=== PATIENT | male | born 1965 | race Caucasian/White ===

== ENCOUNTER 2024-10-04 17:42 | Inpatient (IN) | payer OTHER, SELFPAY ==
[2024-10-04] VITALS (27 sets, daily range): BP systolic 106–132; BP diastolic 74–107; BMI 32.5; BMI 32.2
--- NOTE | 2024-10-04 15:19 | ED.GENMED ---
History of Present Illness
General
Chief Complaint: Cardiac Symptoms
Source: patient
Exam Limitations: none
Time Seen by Provider: 10/04/24 15:09
History of Present Illness
History of Present Illness:
59yoM with a history of hypertension and DVT on Eliquis presenting for evaluation of elevated heart rate. Patient's noticed that his heart rate was elevated 3 days ago. He borrowed his coworker's watch which monitors his heart rate. His
heart rate has been elevated in the 140s for the past several days. He was seen by his PCP today and was sent to the ED for evaluation. Triage EKG shows atrial flutter. He has no prior history of this. He is currently asymptomatic and denies any
palpitations, chest pain, shortness of breath, dizziness, syncope.
Past History
Past History
ED Past Medical History: Other (DVT)
Social History
Tobacco: Non-smoker
Personal:
Phy Exam
General Physical Exam
General Presentation: well appearing
General Skin: warm and dry
General Habitus: normal
General Mental: alert
ENT Exam
ENT Exam: normocephalic
Cardiovascular Exam
Cardiovascular Exam: no edema, irregularly irregular and tachycardia
Pulmonary Exam
Pulmonary Exam: lungs clear, no respiratory distress, no rales, no crackles, no rhonchi and no wheezing
Neurological Exam
Neurological Exam: alert
Luisa Coma Scale
Eye Opening: Spontaneous
Verbal Response: Oriented
Motor Response: Obeys Commands
GCS Total Score: 15
Skin Exam
Skin Exam: normal color and warm/dry
Psychiatric Exam
Psychiatric Exam: normal mood/affect
Course
Orders/Labs/Results
Orders:
Orders
10/04/24 14:45
EKG [Electrocardiogram (*1)] Urgent
Reason for Study: Atrial Fibrillation
EKG- Treatment ONCE
10/04/24 15:18
Cardiac Monitoring- Treatment ONCE
0.9% Sodium Chloride 1000 ml [Nss] 1,000 ml IV BOLUS
Diltiazem HCl [Cardizem] 15 mg IV NOW STA
10/04/24 15:28
Complete Blood Count/With Diff Urgent
Comprehensive Metabolic Panel Urgent
Magnesium Urgent
TSH Reflex To Free T4 Urgent
Troponin I Urgent
10/04/24 15:30
Diltiazem 125 mg/125 ml Nss [Cardizem] 125 mg in 125 ml IV PER PROTOCOL
Initial dose in mg/hr, then titrate:: 5
Titrate to keep:: Heart rate 80-100 bpm
Titrate by mg/hr:: 5 mg/hr
Frequency of titrations (minutes):: 15
Maximum dose in mg/hr:: 15
10/04/24 17:12
Echo 2D MMode Color/Doppler Routine
Reason for Study: afib, new
10/04/24 17:30
Admit/Transfer Patient As Directed
Co-Sign Provider:
Level of Care: Inpatient admission
Assign to:: IVU
Physician / Group: [email or web address]
Diagnosis: New onset fast A Flutter
Reason for Hospitalization: New onset fast A Flutter
Expected length of stay greater than two midnights?: Yes
ELOS- Estimated Length of Stay in days: 3
I certify the patient meets the requirements for IP care: Yes
10/04/24 17:31
Code Status As Directed
Resuscitation Status: Full Code
10/04/24 20:00
Apixaban [Eliquis] 5 mg PO BID
10/05/24 06:00
Echo Candido W/echo Doppler (#17) IN AM
Reason for Study: prior to cardioversion
NPO
Allow oral meds: Yes
Allow clear liquids: No
Abnormal Lab Results
10/04/24
15:28
RBC 4.56 L 10^6/uL
(4.70-6.10)
MCH 31.8 H pg
(27.0-31.0)
MPV 10.9 H fL
(7.4-10.4)
Absolute Lymphs (auto) 1.1 L 10^3/uL
(1.2-3.4)
Lymphocytes % 19.6 L %
(20.5-51.1)
Chloride 111 H mmol/L
(98-107)
Glucose 100 H mg/dl
(70-99)
10/04/24 15:28
10/04/24 15:28
Vital Signs
Initial and Last Documented VS:
Initial Vital Signs
Temp Pulse Resp BP Pulse Ox
98.5 F 144 16 132/95 98
10/04/24 14:51 10/04/24 14:51 10/04/24 14:51 10/04/24 14:51 10/04/24 14:51
Last Documented Vital Signs
Temp Pulse Resp BP Pulse Ox
98.5 F 115 14 126/86 97
10/04/24 14:51 10/04/24 16:35 10/04/24 16:35 10/04/24 16:35 10/04/24 16:35
MDM/Problems Addressed
Differential Diagnosis Includes:
59yoM here with elevated HR x several days. He is asymptomatic and denies palpitations. HR in the 140s on arrival. EKG shows rapid aflutter which he has no hx of. BP stable. Differential diagnosis includes but is not limited to: arrhythmia,
electrolyte abnormality, thyroid dysfunction
Initial ED plan: Check cardiac labs, TSH, magnesium. IV Cardizem bolus and infusion ordered.
*Pulse Oximetry
SaO2: 98
Oxygen Mode of Delivery: Room air
Patient hypoxic: no (98%)
*EKG
Interpreted by ED Provider?: Yes
EKG Intrepretation Date: 10/04/24
Heart Rate: 142
Rate: tachycardiac
Rhythm: atrial flutter
[place]: normal axis
Interval: normal interval
QRS Pattern: normal QRS
Ischemia: non-specific ST changes
*Critical Care Note
Total Time (30-74mins, 75-104mins- exclusive of procedures): Not Applicable (30)
Update Note
Update Note:
Labs unremarkable including normal electrolytes and TSH. Heart rate controlled on Cardizem gtt. Patient evaluated by cardiology. Tentative plan for CANDIDO/cardioversion tomorrow. Patient admitted for further management.
ED Attending Note
-
Portions of this chart may have been created with voice recognition software.� Occasional wrong word or��sound alike� substitutions may have occurred due to the inherent limitations of voice recognition software.
Discharge Plan
Departure
Patient Disposition: Admit
Date of Disposition: 10/04/24
Time of Disposition: 17:04
Presentation/result/management discussed w/ accepting MD/DO: Hospitalist
Discharge Problem:
Atrial flutter with rapid ventricular response
Interventions
Interventions:
*Risk Screen - Suicide Last Done: 10/04/24 14:51
*General Assessment Last Done: 10/04/24 14:51
*Neglect/Abuse Screening Last Done: 10/04/24 14:51
*ED- Fall Risk Assessment Last Done: 10/04/24 14:51
*ED COVID-19 Vaccine History Last Done: 10/04/24 14:51
ED- Pulmonary Assessment Last Done: 10/04/24 15:26
ED- Cardiac Assessment Last Done: 10/04/24 15:26
[2024-10-04] MEDS: NSS 1000 IV (15:34)
[2024-10-04] MEDS: CARDIZEM 15 MG IV (15:34)
[2024-10-04 15:37] LABS: Hematocrit 42.5 % (39.0-52.0); Hemoglobin 14.5 g/dL (13.0-18.0); Mean Corp Hgb Conc. 34.1 g/dL (33.0-37.0); Mean Corpuscular Volume 93.2 fL (80.0-94.0); Nucleated Red Blood Cells % 0 % (-); Platelet Count 157 10^3/uL (130-400); Red Cell Dist. Width 12.4 % (11.5-14.5)
[2024-10-04] MEDS: CARDIZEM 125 IV (15:37)
[2024-10-04 16:02] LABS: Troponin I < 0.012 ng/ml
[2024-10-04 16:04] LABS: ALT (SGPT) 17 U/L (0-50); AST (SGOT) 17 U/L (17-59); Albumin 4.5 g/dl (3.5-5.0); Alkaline Phosphatase 49 U/L (38-126); Blood Urea Nitrogen 16 mg/dl (9-20); Calcium 10.0 mg/dl (8.4-10.2); Carbon Dioxide 24 mmol/L (22-30); Chloride 111 mmol/L (98-107); Estimated Creatinine Clearance > 125 ml/min; Glucose 100 mg/dl (70-99); Magnesium 2.0 mg/dl (1.6-2.3); Potassium 4.6 mmol/L (3.5-5.1); Sodium 138 mmol/L (135-145); Total Protein 6.9 g/dl (6.3-8.2); eGFR > 60.00
--- NOTE | 2024-10-04 16:21 | CON.CAR ---
Addendum entered and electronically signed by Raffi Washington MD 10/04/24 17:38:
I saw and examined the patient.
The MAGAZINE DESIGNER's note was reviewed and I agree with the note.
Comment: NPO after midnight, Eliquis 5 mg bid, dilt gtt, LEIA DCCV tomorrow
Original Note:
Consultation
Consultation Request
Date/Time Consultation Requested: 10/04/24 1600
Date/Time Consultation Performed: 10/04/24 1620
Requesting Provider: Cherise Padron
Performing Provider: Ann-Marie GO for Dr. Washington
Reason for Consultation: Atrial flutter
Medical History
-
Chief Complaint: elevated HR
History of Present Illness:
59 y/o male with hypertension and DVT on Eliquis who is here for elevated HR noted by his on Wednesday (when her ear was against his chest). On Wednesday, he wore a smart watch and HR was in 140's. This happened again on Wednesday. Today, he went to
PCP and was referred to ER for atrial flutter with HR's in 140's. He does not feel it. He is on a diltiazem drip at present.
Past Medical History
Past Medical History: HTN and Other (DVT)
Social History
Tobacco: Non-Smoker
Alcohol: Other (moderate drinking on weekends)
Personal:
Allergies / Home Medications
Allergy/AdvReac Type Severity Reaction Status Date / Time
No Known Allergies Allergy Verified 10/04/24 14:54
Med rec pending, but patient takes Eliquis once daily and lisinopril
Review of Systems
-
History Source: Patient
All other systems: Negative unless noted
Physical Exam
Vital Signs
Temp Pulse Resp BP Pulse Ox
98.5 F 102 22 115/80 95
10/04/24 14:51 07/16/25 16:10 10/04/24 16:10 10/04/24 16:10 10/04/24 16:10
Lab Results
10/04/24 15:28
10/04/24 15:28
Troponin I < 0.012 ng/ml 10/04/24 15:28
Physical Exam
General: Well Developed, Well Nourished and No Apparent Distress
HEENT: Normocephalic and Anicteric
Respiratory: Clear and Non Labored Respirations
Cardiac: Regular Rhythm
Musculoskeletal: No Edema
Skin: Warm and Dry
Neuro: AO x 3
Psych: Calm
Impression / Plan
-
Atrial flutter: new diagnosis
-continue IV diltiazem, which requires intensive monitoring
-continue Eliquis, but he needs to be on 5 mg PO BID- we reviewed this- [id number] score is 1 for HTN, but he is on Eliquis for DVT
-LEIA/CV in AM- we reviewed these procedures in detail
-TSH pending
-echo
-sleep study as OP
-reduce ETOH, exercise, weight loss all recommended
hx DVT:
-taking Eliquis only once daily, so we reviewed proper dosing of this
HTN:
-can transition from lisinopril to diltiazem
Data Reviewed
-
EKG: Tracing Personally Visualized and interpreted (Atrial flutter 142 BPM)
Medical Tests (Nuc Med, Echo etc): Other (echo is ordered)
Labs: Labs Reviewed by me
--- NOTE | 2024-10-04 17:26 | HPS.HSE ---
Family Physician
-
Family Physician: Bertha Chaves
Chief Complaint
-
fast HR
History of Present Illness
59M HX HTN, HX DVT on seen at ER:
- seen for fast HR noted by his on Wednesday when her ear was against his chest
- On Wednesday, he wore a smart watch and HR was in 140's. This happened again on Wednesday.
- Today, he went to PCP and was referred to ER for atrial flutter with HR's in 140's. It is asymtomatic
- He is on a diltiazem gtt at present.
Medical History
Past Medical History
Past Medical History: Reports HTN and Other (HX DVT on ); Denies Arrhythmia
Past Surgical History: Reports None
Social History
Tobacco: Non-smoker
Alcohol: Other (moderate drinking over the weekends )
Drug: None
Personal:
Living: With Family
Family History
Family History: Not pertinent
Allergies / Home Medications
Allergies reflects when Allergies were last updated in [facility].
Home Medications with original date entered in [facility]
Allergy/Medication List:
Allergies
Allergy/AdvReac Type Severity Reaction Status Date / Time
No Known Allergies Allergy Verified 10/04/24 14:54
Home Medications
lisinopril 10 mg tablet 10 mg PO DAILY 12/04/15
enoxaparin 120 mg/0.8 mL subcutaneous syringe 110 mg (0.7333 mL) SC Q12H ##60 12/07/15
Review of Systems
-
Constitutional: Reports No Symptoms
EENT: Reports No Symptoms
Respiratory: Reports No Symptoms
Cardiac: Reports See HPI; Denies Chest Pain or Palpitations
Abdomen/GI: Reports No Symptoms
: Reports No Symptoms
Musculoskeletal: Reports No Symptoms
Skin: Reports No Symptoms
Neurological: Reports No Symptoms
Endocrine: Reports No Symptoms
Hematologic/Lymphatic: Reports No Symptoms
Psych: Reports No Symptoms
Physical Exam
Vital Signs
Vital Signs
Temp Pulse Resp BP Pulse Ox
98.5 F 115 14 126/86 97
10/04/24 14:51 10/04/24 16:35 10/04/24 16:35 10/04/24 16:35 10/04/24 16:35
Physical Exam
General: Well Developed, Well Nourished and No Apparent Distress
HEENT: NormoCephalic, Moist mucous membranes and Atraumatic
Respiratory: Clear
Cardiac: Irregular Rhythm
GI: Soft, Non Tender, Non Distended and Normal Bowel Sounds; No Organomegaly
Rectal: Deferred by Provider
Musculoskeletal: No Clubbing, No Cyanosis and No Edema
Skin: No Rash
Neuro: Nonfocal/grossly intact
Laboratory Results
-
10/04/24 15:28
10/04/24 15:28
Laboratory Results
Total Bilirubin 1.3 mg/dl (0.2-1.3) 10/04/24 15:28
AST 17 U/L (17-59) 10/04/24 15:28
ALT 17 U/L (0-50) 10/04/24 15:28
Alkaline Phosphatase 49 U/L (38-126) 10/04/24 15:28
Troponin I < 0.012 ng/ml 10/04/24 15:28
Data Reviewed
-
Lab Data: Labs Reviewed by me
Old Records: Reviewed
Impression/Plan
-
Vital Signs
Temp Pulse Resp BP Pulse Ox
98.5 F 115 14 126/86 97
10/04/24 14:51 10/04/24 16:35 10/04/24 16:35 10/04/24 16:35 10/04/24 16:35
Abnormal Labs
10/04/24
15:28
RBC 4.56 L
MCH 31.8 H
MPV 10.9 H
Absolute Lymphs (auto) 1.1 L
Lymphocytes % 19.6 L
Chloride 111 H
Glucose 100 H
ASSESSMENT & PLAN
Pending Rx reconciliation
New onset of fasr Atrial flutter
[id number] score is 1 for HTN
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
- continue Diltiazem gtt
- continue Eliquis , will escalade to 5 mg PO BID approrpate for A Flutter
- NPO after MN - for LEIA/CV in AM
- TSH pending
- TTE per Card
- Life style modification and reduce ETOH consumption
Class I Obesity BMI of 32.5
-sleep study as OP
HX DVT:
- on SIGN LANGUAGE INTERPRETER Eliquis only once daily - escalde to 5 mg PO BID and infomed patient
Bn HTN:
-on Diltiazem
- Hold Lisinopril for now
DVT Px: on Eliquis new dosing
Full code
IP TLM
[2024-10-04] MEDS: ELIQUIS 5 MG PO (20:14)
--- NOTE | 2024-10-04 21:59 | PTCARENOTE ---
received the patient from the ED. AAOx3. independent. Aflutter on tele 70s-80s. increased rates with movement. bp stable. denies any symptoms. cardizem gtt infusing per protocol. patient states receiving dose of Eliquis tonight. NPO at midnight.
verbalized understanding. possible LEIA/CV in AM.
[2024-10-05 03:56] VITALS: BMI 32.1
[2024-10-05 04:02] VITALS: BP 117/87
[2024-10-05 04:25] LABS: Hematocrit 41.6 % (39.0-52.0); Hemoglobin 13.8 g/dL (13.0-18.0); Mean Corp Hgb Conc. 33.2 g/dL (33.0-37.0); Mean Corpuscular Volume 94.8 fL (80.0-94.0); Platelet Count 147 10^3/uL (130-400); Red Cell Dist. Width 12.3 % (11.5-14.5)
[2024-10-05 04:48] LABS: Blood Urea Nitrogen 14 mg/dl (9-20); Calcium 9.4 mg/dl (8.4-10.2); Carbon Dioxide 27 mmol/L (22-30); Chloride 111 mmol/L (98-107); Estimated Creatinine Clearance > 125 ml/min; Glucose 97 mg/dl (70-99); Potassium 4.3 mmol/L (3.5-5.1); Sodium 138 mmol/L (135-145); eGFR > 60.00
[2024-10-05 05:20] LABS: TSH 1.82 uIU/ml (0.47-4.68)
[2024-10-05] MEDS: CARDIZEM 125 IV (07:11)
[2024-10-05 07:35] VITALS: BP 111/86
--- NOTE | 2024-10-05 08:19 | W.PN.CD ---
Today's Communication / Plan
-
Continue Eliquis
Plan for LEIA cardioversion
Transition to oral Cardizem post cardioversion
Impression / Plan
-
Atrial flutter: new diagnosis
-continue IV diltiazem, which requires intensive monitoring
-continue Eliquis, but he needs to be on 5 mg PO BID- we reviewed this- [id number] score is 1 for HTN, but he is on Eliquis for DVT
-LEIA/CV today.
-sleep study as OP
-reduce ETOH,
- weight loss
hx DVT:
-taking Eliquis only once daily, dosing change for A-fib the 5 mg twice daily
HTN:
-can transition from lisinopril to diltiazem
Physical Exam
Vital Signs/Labs
Vital Signs
Temp Pulse Resp BP Pulse Ox
98.2 F 77 20 111/86 96
10/05/24 07:37 10/05/24 07:45 10/05/24 07:37 10/05/24 07:35 10/05/24 07:37
10/04/24 10/05/24 10/06/24
06:59 06:59 06:59
Actual Weight 110.2 kg
10/05/24 04:07
10/05/24 04:07
Magnesium 2.0 mg/dl (1.6-2.3) 10/04/24 15:28
TSH 1.82 uIU/ml (0.47-4.68) 10/05/24 04:07
LAB Results
10/04/24
15:28
Troponin I < 0.012
Physical Exam
Constitutional: No acute distress
Cardiovascular: Rhythm & rate is regular
Respiratory: Wheeze Absent and Rhonchi Absent
GI: Soft
Neuro/Psych: Alert
Data Reviewed
-
Date of Service: October 05, 2024
Medical Decision Making: Reviewed Test Results
Medical Tests (PFT, Pathology etc): Report Reviewed by me
Labs: Labs Reviewed by me
[2024-10-05] MEDS: ELIQUIS 5 MG PO (08:26)
[2024-10-05 11:25] VITALS: BP 121/85
--- NOTE | 2024-10-05 12:32 | ITS.CL.CARDI ---
Track Vehicle Repairer - Cardioversion
Cardioversion
Procedure Report:
Date of Procedure: 10/05/24
Procedure: Cardioversion
Indication: Symptomatic atrial flutter
Performing Physician: Lokesh Jeong MD
Technique: The patient was brought to the holding area. Signed informed consent was obtained. A time out was called and performed. The patient was anesthetized by the anesthesia service. Anticoagulation status was reviewed and appropriate. R2 pads
were placed anteriorly and posteriorly. A 200 J synchronized biphasic shock restored normal sinus rhythm without significant bradycardia. There were no complications.
Conclusion: Uncomplicated cardioversion from atrial flutter to sinus rhythm.
Recommendation: Routine post cardioversion care. 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
--- NOTE | 2024-10-05 12:42 | W.PN.HOSP.TC ---
Today's Communication/Plan
-
Monitor vital signs see plan
Cardioversion today
Continue Eliquis
Cardizem per cardiology
Assessment / Plan
Assessment / Plan
General: Well Developed, Well Nourished and No Apparent Distress
HEENT: NormoCephalic, Moist mucous membranes and Atraumatic
Respiratory: Clear
Cardiac: Irregular Rhythm
GI: Soft, Non Tender, Non Distended and Normal Bowel Sounds
Musculoskeletal: No Edema
Neuro: Nonfocal/grossly intact
New onset of fasr Atrial flutter
[id number] score is 1 for HTN
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
- continue Diltiazem gtt, switch to oral when okay with cardiology
- continue Eliquis , will escalade to 5 mg PO BID approrpate for A Flutter
Cardioversion 10/05
- TSH 1.8
Echo pending
- Life style modification and reduce ETOH consumption
Class I Obesity BMI of 32.5
-sleep study as OP
HX DVT:
- on PREMIUM NOTE INTEREST CALCULATOR CLERK Eliquis only once daily - escalde to 5 mg PO BID and infomed patient
Bn HTN:
-on Diltiazem
- Hold Lisinopril for now
DVT Px: on Eliquis new dosing
Full code
Anticipated Discharge: Within 24 hours
Subjective/Interval History
-
Date of Service: October 05, 2024
No chest pain
Objective Data
-
Labs:
Laboratory Results
10/05/24
04:07
WBC 5.2
Hgb 13.8
Hct 41.6
Plt Count 147
Sodium 138
Potassium 4.3
Chloride 111 H
Carbon Dioxide 27
BUN 14
Creatinine 0.8
Glucose 97
Calcium 9.4
Vital Signs:
Vital Signs
Temp Pulse Resp BP Pulse Ox
98.6 F 94 20 121/85 95
10/05/24 11:25 10/05/24 11:30 10/05/24 11:25 10/05/24 11:25 10/05/24 11:25
[2024-10-05 13:05] VITALS: BP 123/91
[2024-10-05 15:30] VITALS: BP 129/82
--- NOTE | 2024-10-05 15:54 | CM ---
CM following for DC planning needs.
Met w/ patient at bedside to complete initial assessment; spouse also present.
Pt. informs that he resides w/ spouse in a private, [facility]. He is functionally indep. without the use of any assisted device.
He is hopeful for DC soon and denies any needs.
Plan is for home, no needs.
CM will remain avail.
--- NOTE | 2024-10-05 16:07 | W.PN.UPDATE ---
Update Note
Progress Note Update
successful cardioversion. Can start Cardizem CD 120mg aday . Can stop lisinopril and monitor BP. Patient may need additonal titration of carizem as outpatient or restart of lisinopril at lower dose if additional BP control required
[2024-10-05] MEDS: CARDIZEM CD 120 MG PO (16:29)
--- NOTE | 2024-10-05 19:12 | PTCARENOTE ---
Pt had an uneventful recovery from LEIA/CV, telemetry shows sinus rhythm. Pt seen by . Telemetry and IV device removed. Discharge instructions reviewed with pt and his regarding medications and their possible side effects, reporting
cares and concerns and follow up appt's. Excellent understanding verbalized. Pt escorted out via wheelchair and pt discharged to home.
--- NOTE | 2024-10-06 08:11 | W.DCSUMMARY ---
Discharge Summary
Discharge Data
Date of Admission: 10/04/24
Date of Discharge: 10/05/24
-
Pending Results: No
Hospital Course
59-year male with past medical history of DVT, hypertension came to the hospital with new onset A-fib with RVR. Patient initially required Cardizem drip which was later transitioned to p.o. Cardizem prior to discharge. Patient underwent
cardioversion and was converted back to normal sinus rhythm. He was also taking Eliquis only once daily which was incorrect for his DVT so he was instructed to increase Eliquis to 5 mg oral twice daily. For his blood pressure since he was started
on Cardizem, lisinopril was discontinued. Once his symptoms continue to improve and he remained in normal sinus rhythm, patient was then discharged home with instructions to follow-up with all his physicians outpatient.
Discharge Plan
-
Patient Disposition: Home (Routine Discharge)
Discharge Diagnosis/Procedures: A-fib/flutter with RVR
History of DVT
Hypertension
Procedure: cardioversion
Condition: Fair
Diet: As tolerated
Activity: As tolerated
Driving Restrictions: No driving for 24 hours
Bathing Restrictions: None
Activity Restrictions/Additional Instructions:
Important to take Eliquis twice daily as discussed!
Referrals:
Bertha Chaves DO [Family Provider, Family Practice] - in less than 1 week
Viv Victoria CRNP [Specified Professional Personl, Cardiology] - 10/20/24 8:40 am
Prescriptions:
New
diltiazem HCl 120 mg Capsule,Extended Release 24hr
120 mg PO DAILY Qty: 30 0RF
Continued
tadalafil 20 mg Tablet
20 mg PO DAILYPRN PRN (Reason: ED)
Changed
Eliquis 5 mg Tablet
5 mg PO BID Qty: 60 0RF
Patient Comments:
10/04/2024, pt. states to be taking incorrectly; he is taking one tablet daily, but it's prescribed for pt. to take BID.
Discontinued
lisinopril 20 mg Tablet
20 mg PO DAILY
Discharge Orders:
Discharge Patient (As Directed); Ordered 10/05/24
Ordered By: Drew Corona
Discharge Date and Time
Discharge Date/Time: 10/05/24 18:10
Print Language: KYRGYZ
== END 2024-10-05 18:10 | disposition home or self-care (01) | DRG 310 ==
LOC: IVU 17:42
PROVIDERS: Internal Medicine Cardiovascular Disease; Physician Assistant; ADMITTING PHYSICIAN Internal Medicine; ATTENDING PHYSICIAN Internal Medicine; CONSULT PHYSICIAN Internal Medicine Cardiovascular Disease; EMERGENCY PHYSICIAN Emergency Medicine; FAMILY PHYSICIAN Family Medicine
PROC: 5A2204Z Restoration of Cardiac Rhythm, Single (ICD-10-PCS; 2024-10-05)
PROC: B24BZZ4 Ultrasonography of Heart with Aorta, Transesophageal (ICD-10-PCS; 2024-10-05)
DX: I48.92 Unspecified atrial flutter (principal); Z86.718 Personal history of other venous thrombosis and embolism; I48.91 Unspecified atrial fibrillation; I10 Essential (primary) hypertension; E66.811 Obesity, class 1; Z68.32 Body mass index [BMI] 32.0-32.9, adult; Z79.01 Long term (current) use of anticoagulants
CPT/HCPCS: 80048; 80053; 83735; 84443; 84484; 85025; 85027; 92960; 93005; 93312; 93320; 93325; 96374; 99285

== ENCOUNTER 2024-10-13 11:04 | Day surgery (SDC) | payer OTHER, SELFPAY | END 2024-10-13 13:07 | disposition home or self-care (01) | LOC: CATH 11:04 | PROVIDERS: ATTENDING PHYSICIAN Internal Medicine Cardiovascular Disease; FAMILY PHYSICIAN Family Medicine; OTHER PHYSICIAN Internal Medicine Cardiovascular Disease | DX: I48.3 Typical atrial flutter (principal); Z79.01 Long term (current) use of anticoagulants; I10 Essential (primary) hypertension; Z86.718 Personal history of other venous thrombosis and embolism | CPT/HCPCS: 92960; 93005 ==

== ENCOUNTER → 2024-10-19 08:23 | Day surgery (SDC) | payer OTHER, SELFPAY ==
[2024-10-19] VITALS (10 sets, daily range): BP systolic 113–123; BP diastolic 79–98; BMI 31.3
[2024-10-19 11:56] LABS: ACT-LR - POC 237 Seconds (116-155)
--- NOTE | 2024-10-19 12:25 | ITS.CL.ABL ---
City Designer - Ablation
Ablation
Procedure Report:
Atrial Flutter ablation:
Mr. Martinez is a very pleasant 59 yr old gentleman with multiple recurrence of atrial flutter presented for EP study and ablation.
Date of the Procedure:
10/19/2024
Indications:
Atrial flutter with RVR.
Pre-Operative Diagnosis:
Typical Atrial Flutter
Post-Operative Diagnosis:
Supra-ventricular tachycardia with Typical Atrial Flutter
Procedure Performed:
Atrial flutter ablation with cavo-tricuspid isthmus line block formation
Performing Physician:
Chaya Macario MD
Assistants:
EP staff
Anesthesia:
See anesthesia records
Detailed Description of the Procedure:
Written informed consent was obtained from the patient after a full explanation of the risks and benefits of the procedure including the risks of sedation and anesthesia.
The patient was brought to the electrophysiology laboratory in stable condition in fasting state. Continuous electrocardiographic and hemodynamic monitoring was initiated.
The initial rhythm was atria flutter.
The procedure site was meticulously prepared with surgical scrub and allowed to dry with no pooling. Sterile draping was applied to cover the procedure site. The image intensifier was draped with sterile bag and positioned over the patient.
After infusion of local anesthetic, vascular access was obtained under ultrasound guidance and sheaths were placed over guide wire as detailed below.
Sheath and Catheter Placement:
The following catheters / sheaths were placed
Sheaths:
��������� 8Fr in right femoral vein � upgraded to Agilis sheath
��������� 7Fr in the right femoral vein
Catheters:
��������� [employer]ense Banks Thermocool STSF bidirectional� - at locations of HRA, RV, CS and His.
��������� Decapolar catheter - at locations of CS
A 7000 units of heparin was given after the access was complete.
Tachycardia:
The tachycardia was studied in detail.� the cycle length was 240 msec. The entrainement from the CTI isthmus and the prox CS was in the flutter circuit.
Electroanatomic mapping (EAM):
The right atrium was mapped in the tachycardia. The tachycardia was fast but hemodynamically stable and could be mapped. The obtained maps of the tachycardia and the electrograms were studied in detail. EAM showed counter clockwise typical atrial
flutter with cavo tricuspid isthmus dependence
Ablation # 1: Typical Atrial Flutter Ablation:
Radiofrequency ablation was performed using a 3.5mm, open irrigation, force-sensing bidirectional ablation catheter (Statusly STSF) in the cavotricuspid isthmus from the tricuspid annulus to the IVC ridge.
The flutter slowed and terminated into sinus rhythm once the CTI block was achieved.
Post ablation mapping was done:
Following observations were noted.
����������� -Bidirectional block was confirmed across the CTI line with differential pacing.
����������� -Double potentials were spaced greater than 112 msec apart.
����������� -The conduction time across the CTI line from proximal CS pacing was 168 msec.
����������� -EAM of the right atrium was obtained with coronary sinus pacing and showed a line of block at the CTI.
����������� -The time interval just lateral to the ablation lesions was 168 msec and the lateral wall was 112 msec
����������� - All these maneuvers confirmed the block at the CTI line.
- Post ablation HV interval was unchanged at 45 msec
The patient was observed in the EP lab for 15 minutes and the repeat study showed stable block at the CTI location and CTI conduction time was 168 msec.
Procedure End
Following the completion of the EP study, catheters were removed.� The sheaths were removed and hemostasis achieved with VASCADE and manual compression.
Estimated Blood loss:
<5 cc
Specimens Removed:
None.
Implants / Devices:
None
Urine output:
None
Packs / Drains/ Tubes:
None
Instrument / Sponge Count Correct:
Yes
Fluoro time:
0 - Flouroless
Complications of the Procedure:
None
Condition of Patient at Time of Transfer:
Hemodynamically stable with no neurological or vascular compromise.
Summary:
Successful SVT ablation with typical atrial flutter ablation with cavo-tricuspid isthmus line of block formation.
.
== END | disposition home or self-care (01) ==
LOC: CATH 08:23
PROVIDERS: ATTENDING PHYSICIAN Internal Medicine Cardiovascular Disease; FAMILY PHYSICIAN Family Medicine
DX: I48.3 Typical atrial flutter (principal); Z79.01 Long term (current) use of anticoagulants; I10 Essential (primary) hypertension; Z86.718 Personal history of other venous thrombosis and embolism
CPT/HCPCS: C1894; C1730; C1732; C1766; 86850; 86900; 86901; 93653; 93662; C1760

== ENCOUNTER 2025-02-22 05:59 | Day surgery (SDC) | payer OTHER, SELFPAY ==
[2025-02-22] VITALS (10 sets, daily range): BP systolic 119–147; BP diastolic 65–88; BMI 31.7
[2025-02-22] MEDS: TYLENOL 1000 MG PO (06:44)
[2025-02-22] MEDS: NORMOSOL-R/PLASMALYTE-A 1000 IV (06:44)
--- NOTE | 2025-02-22 06:50 | W.SUR.PREOP ---
Pre-Operative Surgical Note
-
I have examined this patient prior to the performance of the scheduled procedure.
The patient's condition is unchanged from the time of the current History and
Physical and the patient is able to undergo the scheduled procedure.
--- NOTE | 2025-02-22 06:50 | HP.FOC2 ---
Focused History & Physical
Chief Complaint
HPI:
Chief Complaint: Right inguinal hernia, umbilical hernia
HPI / Indication for Planned Procedure: This is a 59-year-old male who presents with a symptomatic right inguinal hernia, incidentally found umbilical hernia. Will plan for a robotic right inguinal hernia repair with mesh, possible umbilical hernia
repair with mesh
Relevant Past Medical History: Negative
Relevant Social History: Negative
Relevant Family History: Negative
Relevant Past Surgical History: Negative
Review of Systems
Review of Pertinent Systems: All Systems Negative
Medication
See Medication form for detailed medications: Yes
Medication List (including Herbals & OTC):
apixaban 5 mg tablet (Eliquis) 5 mg PO BID #60 tabs 10/05/24
diltiazem HCl 120 mg capsule,extended release 24 hr 120 mg PO DAILY #0 caps 10/19/24
Medications Reviewed: Yes
Allergies and Reactions
Patient has Allergies: Yes
Noted Allergies and Reactions:
Allergy/AdvReac Type Severity Reaction Status Date / Time
No Known Allergies Allergy Verified 02/22/25 06:33
Pertinent Physical Exam
All Other Systems: Negative
Head/Neck: Normal
Diagnosis / Assessment
This is a 59-year-old male who presents with a symptomatic right inguinal hernia, incidentally found umbilical hernia. Will plan for a robotic right inguinal hernia repair with mesh, possible umbilical hernia repair with mesh
Plan / Procedure
This is a 59-year-old male who presents with a symptomatic right inguinal hernia, incidentally found umbilical hernia. Will plan for a robotic right inguinal hernia repair with mesh, possible umbilical hernia repair with mesh
Anesthesia/Sedation to be done by Anesthesia Provider: Yes
--- NOTE | 2025-02-22 09:14 | W.IMMPOSTOP ---
Surgical Immed Post Op Note
-
Primary Surgeon: Danish Pelletier MD
Assisting Surgeon: None
Pre-op Diagnosis: Right inguinal hernia, umbilical hernia
Post-op Diagnosis: Same
Procedure Performed:
1. Robotic right inguinal hernia repair with mesh.
2. Excision of the right spermatic cord lesion
3. Open primary umbilical hernia repair
Anesthesia Type: General
Specimen / Cultures: Right cord lipoma
Estimated Blood Loss: 7 cc
Complications: None
Operative Findings: 1.5 cm infraumbilical hernia defect containing preperitoneal fat. No obvious left inguinal hernia. Small indirect defect, large direct defect. No femoral component. Medium cord lipoma reduced and excised. After achieving the
critical view of the n.p.o. the space was reinforced with a large right Bard 3D max mid weight uncoated polypropylene mesh. The space was also infiltrated with 3 g of Kalyani prophylactically due to the patient's therapeutic anticoagulation. The
umbilical defect was closed in the transverse direction with 2 [id number] 0 Surgilon sutures.
--- NOTE | 2025-02-22 09:17 | OR.RPT ---
Operative Report
Operative Report
Patient Name: Koko Martinez
: 1965
Date of Operation: 02/22/2025
Preoperative Diagnosis: Right inguinal hernia, umbilical hernia
Postoperative Diagnosis: Same
Procedure(s):
1. Robotic Inguinal Hernia Repair with mesh, (LEELA approach)
2. Excision of lesion of a spermatic cord lipoma ([id number])
3. Open primary umbilical hernia repair
Surgeon(s):
Dr. Pelletier
Oil Process Stillman(s):
INDY Krueger
Anesthesia: General
Estimated Blood Loss: 7 cc
Urine Output: None
Drains/Lines/Implants: Large 3D Max Bard mid weight uncoated polypropylene mesh
Specimens: Right cord lipoma
Indication for surgery: The patient has a history of groin pain and noted on exam to have a right inguinal and umbilical hernia(s). Following review of therapeutic options they have elected to undergo a minimally invasive repair.
Operative Findings: 1.5 cm infraumbilical hernia defect containing preperitoneal fat. No obvious left inguinal hernia. Small indirect defect, large direct defect. No femoral component. Medium cord lipoma reduced and excised. After achieving the
critical view of the n.p.o. the space was reinforced with a large right Bard 3D max mid weight uncoated polypropylene mesh. The space was also infiltrated with 3 g of Kalyani prophylactically due to the patient's therapeutic anticoagulation. The
umbilical defect was closed in the transverse direction with 2 [id number] 0 Surgilon sutures.
Details of the operation:
The patient was brought to the Operating Room and placed in the supine position with the arms tucked. IV antibiotics were infused and Venodyne stockings placed. Following uneventful induction of general endotracheal anesthesia, an orogastric tube
was placed. The abdomen was prepped and draped in the usual sterile fashion. We began by addressing the umbilical hernia. An infraumbilical incision was made in the hernia sac was encircled using blunt dissection. This was carefully peeled off
the overlying umbilical stalk. The hernia sac was opened and found to contain preperitoneal fat which was reduced. The abdomen was entered using an 8 mm trocar pneumoperitoneum to 15 mmHg was obtained without difficulty. We then confirmed that no
inadvertent injury was made while passing the trocar. We then placed two additional 8 mm ports in the left upper and right upper quadrants. We then docked the robot with a Prograsper in the left hand port and monopolar scissors in the right. No
left inguinal hernia was identified. There was a small indirect and direct defect on the right on the right side. We then began by creating a flap at the level of the ASIS laterally working our way medially to the medial umbilical fold. Staying
onto the peritoneum we were able to circumferentially dissect around the hernia sac and and peel it off of the underlying spermatic cord and testicular vessels, taking care to preserve them. Medially we identified the midline pubis as well as
Sotero's ligament and ensured to dissect 2 cm below the pubic rim over the bladder. After exposure of the entire myopectineal orifice we identified and reduced: A small m sized indirect inguinal hernia, large direct inguinal hernia, no femoral
hernia, a medium cord lipoma, which was removed
We then fixated a large 3D max mesh with a 2-0 Vicryl stitch at coopers medially and superior laterally. Though the field was hemostatic, given the need for therapeutic anticoagulation, the field was flooded with 3 g of Kalyani. The flap was then
closed with a running 2-0 barbed monocryl suture ensuring that the tail was cut flush with the medial fat pad so that no barbs were exposed. During the closure of the flap a Veress needle was inserted and 20 cc of quarter percent Marcaine was
instilled. The area in the flap cavity was then evacuated of air confirming that the mesh was flush and there were no folds. A small rent in the peritoneum was noted and closed with 2-0 Vicryl. All needles and instruments were then removed and the
robot was undocked. The abdomen was then desufflated, and pneumoperitoneum evacuated. At this point I scrubbed back in to complete the umbilical hernia repair. The fascia was grasped and a preperitoneal pocket was created to ensure good
apposition of the fascia. The defect measured 1.5 cm so we elected to close this with suture alone. Using x2 0 Surgilon [id number] sutures the defect was closed in the transverse direction. All skin sites were then closed with 4-0 Monocryl
followed by Dermabond. Counts were correct and overall, the patient tolerated the procedure well and was taken to the Recovery Room postoperatively in stable condition.
I was the attending physician and performed the procedure with assistance of the PA above. Their assistance was required due to the complexity of the procedure. During the procedure they assisted with retraction, resection, and closure of the
wound. During the procedure they assisted with port placement, instrument and needle exchanges, and closure of the wound. I was present for all portions of the case, excluding skin closure.
Danish Pelletier MD
== END 2025-02-22 12:30 | disposition home or self-care (01) ==
LOC: SDS 05:59
PROVIDERS: ATTENDING PHYSICIAN Surgery
DX: K40.90 Unilateral inguinal hernia, without obstruction or gangrene, not specified as recurrent (principal); K42.9 Umbilical hernia without obstruction or gangrene
CPT/HCPCS: 49650; 49591; 88304